=== PATIENT | male | born 1955 ===

== ENCOUNTER 2018-05-30 12:38 | Emergency (ER) | payer BC ==
[2018-05-30 12:57] VITALS: RESP 18; TEMP 98; O2SAT 98
--- NOTE | 2018-05-30 13:17 | C.PDOC ---
History Of Present Illness 62 y/o female presents to the ED complaining of an intermittent cough for 2 weeks. Cough is non-productive. Denies any COLLINS, SOB, fever, chills, leg swelling or tingling. Patient also reports new onset mid-sternal chest pain, ongoing since yesterday. Pain is not exertional, constant, and has no association with movement. Patient denies any pleuritic symptoms. Denies prior cardiac history. (+) Distant hx of smoking. Time Seen by Provider: 05/30/18 13:01 Chief Complaint (Nursing): Cough, Cold, Congestion History Per: Patient History/Exam Limitations: no limitations Onset/Duration Of Symptoms: Days Current Symptoms Are (Timing): Still Present Past Medical History Reviewed: Historical Data, Nursing Documentation, Vital Signs Vital Signs: Last Vital Signs Temp 98 F 05/30/18 12:49 Pulse 100 H 05/30/18 12:49 Resp 18 05/30/18 12:49 BP 118/73 05/30/18 12:49 Pulse Ox 98 05/30/18 14:31 - Medical History PMH: HTN Family History: States: No Known Family Hx - Social History Hx Tobacco Use: No (former) Hx Alcohol Use: No Hx Substance Use: No Review Of Systems Except As Marked, All Systems Reviewed And Found Negative. Constitutional: Negative for: Fever, Chills Eyes: Negative for: Vision Change Cardiovascular: Positive for: Chest Pain Respiratory: Positive for: Cough. Negative for: Shortness of Breath, Hemoptysis , SOB with Excertion, Sputum Gastrointestinal: Negative for: Nausea, Vomiting Musculoskeletal: Negative for: Leg Pain (or swelling) Skin: Negative for: Rash Neurological: Negative for: Weakness, Numbness, Headache, Dizziness Physical Exam - Physical Exam Appears: Non-toxic, No Acute Distress Skin: Normal Color, Warm, Dry Head: Atraumatic, Normacephalic Eye(s): bilateral: Normal Inspection, PERRL, EOMI Nose: Normal Oral Mucosa: Moist Neck: Normal ROM Chest: Symmetrical Cardiovascular: Rhythm Regular, No Murmur Respiratory: Normal Breath Sounds, No Accessory Muscle Use, No Rales, No Rhonchi , No Wheezing Gastrointestinal/Abdominal: Soft, No Tenderness, No Distention Back: Normal Inspection, No CVA Tenderness, No Vertebral Tenderness Extremity: Bilateral: Atraumatic, No Pedal Edema, Normal Color And Temperature, Normal ROM Pulses: Left Dorsalis Pedis: Normal, Right Dorsalis Pedis: Normal Neurological/Psych: Oriented x3, Normal Speech, Other (No focal deficits) Gait: Steady ED Course And Treatment - Laboratory Results Result Diagrams: 05/30/18 13:46 05/30/18 13:46 ECG: Interpreted By Me ECG Rhythm: Sinus Rhythm ECG Interpretation: Normal Rate From EC O2 Sat by Pulse Oximetry: 98 (RA) Pulse Ox Interpretation: Normal - Radiology CXR: Interpreted by Me CXR Interpretation: Yes: No Acute Disease Progress - Re-Evaluation Re-evaluation Note: 05/30/18 14:27 FEELS BETTER NARD VSS. ADVISED NEED FOR PMD FU FOR FURTHER EVAL, RETURN IF WORSENING SYMPTOMS. - Data Reviewed Data Reviewed: Lab, Diagnostic imaging, EKG, Old records Medical Decision Making Medical Decision Making: Impression: Non-productive cough, Chest pain Initial Plan: --Blood work w/ troponin --EKG --Chest X-Ray --Duoneb 3ml INH --Toradol 30 mg IM --Tessalon Perles 200 mg PO --Peak Flow pre/post neb Labs reviewed and discussed w/ patient. Disposition Counseled Patient/Family Regarding: Studies Performed, Diagnosis, Need For Followup, Rx Given - Disposition Referrals: YOUR,PMD [Other] Disposition: HOME/ ROUTINE Disposition Time: 14:29 Condition: IMPROVED Prescriptions: Benzonatate [Tessalon Perles] 200 mg PO TID PRN #15 sgl PRN Reason: Cough Ibuprofen [Motrin] 600 mg PO Q6 #30 tab Instructions: Chest Pain (DC), Cough, Adult (DC) Forms: [employer] (Yoruba) - Clinical Impression Clinical Impression: Chest pain, Cough - Scribe Statement The provider has reviewed the documentation as recorded by the Rocio Kaur Provider Attestation: All medical record entries made by the Rebeccaibvasu were at my direction and personally dictated by me. I have reviewed the chart and agree that the record accurately reflects my personal performance of the history, physical exam, medical decision making, and the department course for this patient. I have also personally directed, reviewed, and agree with the discharge instructions and disposition.
[2018-05-30] MEDS ORDERED: Albuterol-Ipratrop 3 mg / 0.5 (3 ml) UD IH STA (13:24)
[2018-05-30] MEDS ORDERED: Albuterol-Ipratrop 3 mg / 0.5 (3 ml) UD ONE (13:49)
--- NOTE | 2018-05-30 13:50 | RAD ---
Date of service: 05/30/2018 HISTORY: chest pain COMPARISON: No prior. TECHNIQUE: Chest PA and lateral FINDINGS: LUNGS: No active pulmonary disease. PLEURA: No significant pleural effusion identified. No pneumothorax apparent. CARDIOVASCULAR: Normal. OSSEOUS STRUCTURES: No significant abnormalities. VISUALIZED UPPER ABDOMEN: Normal. OTHER FINDINGS: None. IMPRESSION: No active disease.
[2018-05-30 13:56] LABS: BASO # 0.1 K/uL (0.0-0.2); BASO % 0.9 % (0.0-2.0); EOS # 0.1 K/uL (0.0-0.7); EOS % 1.8 % (0.0-4.0); HEMOGLOBIN 14.5 g/dL (12.0-18.0); LYMPH # 2.2 K/uL (1.0-4.3); LYMPH % 27.8 % (20.0-40.0); MEAN CELL VOLUME 87.8 fL (80.0-94.0); MEAN CORPUSCULAR HEMOGLOBIN 30.2 pg (27.0-31.0); MEAN CORPUSCULAR HGB CONC 34.4 g/dL (33.0-37.0); MEAN PLATELET VOLUME 7.5 fL (7.2-11.7); MONO # 0.6 K/uL (0.0-0.8); NEUT % 62.5 % (50.0-75.0); NRBC % 0.1 % (0.0-2.0); RBC 4.81 Mil/uL (4.40-5.90); RED CELL DISTRIBUTION WIDTH 13.1 % (11.5-14.5); WHITE BLOOD COUNT 7.9 K/uL (4.8-10.8)
[2018-05-30 14:02] LABS: ALB/GLOB RATIO 1.6 (1.0-2.1); ALBUMIN 4.6 g/dL (3.5-5.0); ALT/SGPT 19 U/L (21-72); AST/SGOT 17 U/L (17-59); BLOOD UREA NITROGEN 12 mg/dL (9-20); CALCIUM 9.4 mg/dl (8.6-10.4); GFR NON-AFRICAN AMERICAN > 60
[2018-05-30 14:43] VITALS: BP 118/71; PULSE 68
--- NOTE | 2018-06-01 09:18 | CARD ---
APPROVED REPORT Date of service: 05/30/2018 EKG Measurement Heart [id number] <Conclusion> Normal sinus rhythm Normal ECG
== END 2018-05-30 14:51 | disposition home or self-care (01) ==
LOC: C.ER 12:38
DX: R07.9 Chest pain, unspecified (principal); R05 Cough
CPT/HCPCS: 71046; 80053; 84484; 85025; 93005; 94640; 96374; 99284; J1885